=== PATIENT | male | born 1990 | race Caucasian/White ===

== ENCOUNTER 2023-11-03 06:35 | Emergency (ER) | payer SELFPAY ==
[~2023-11-03] VITALS: Ht 175.3 cm; Wt 198.0 kg
[2023-11-03 06:48] VITALS: BP 126/79; PULSE 90; RESP 16; TEMP 97.6
[2023-11-03] MEDS ORDERED: HYDR-4808 PO (06:50)
[2023-11-03] MEDS ORDERED: ZOLP6.2547 PO (06:50)
[2023-11-03] MEDS ORDERED: TRAZ-257 PO (07:22)
[2023-11-03] MEDS ORDERED: LORA-1000 PO (07:22)
== END 2023-11-03 07:30 | disposition home or self-care (01) ==
LOC: EMS 06:36
DX: G47.00 Insomnia, unspecified (principal); F14.10 Cocaine abuse, uncomplicated
CPT/HCPCS: 99283; Z7502